=== PATIENT | female | born 1985 | race Caucasian/White ===

== ENCOUNTER 2017-10-14 19:38 | Emergency (ER) | payer MEDICAID ==
[~2017-10-14] VITALS: Ht 170.2 cm; Wt 132.6 kg
[2017-10-14] MEDS ORDERED: LISD30CA5 PO (20:26)
[2017-10-14] MEDS ORDERED: LISI1TAB7 PO (20:27)
[2017-10-14] MEDS ORDERED: ALBU8.5H8 PO (20:27)
[2017-10-14] MEDS ORDERED: DULO30CA2 PO (20:28)
[2017-10-14] MEDS ORDERED: PARO20TA4 PO (20:28)
[2017-10-14] MEDS ORDERED: TRAM100T3 PO (20:29)
[2017-10-14] MEDS ORDERED: KETOROLAC 30 MG/1 ML IM ONE (20:30)
[2017-10-14] MEDS ORDERED: METHOCARBAMOL 750 MG TABLET PO ONE (20:30)
[2017-10-14] MEDS ORDERED: KETOROLAC 30 MG/1 ML ONE (20:45)
[2017-10-14] MEDS ORDERED: METHOCARBAMOL 750 MG TABLET ONE (20:45)
[2017-10-14 20:56] VITALS: BP 137/89
== END 2017-10-14 21:16 | disposition home or self-care (01) ==
LOC: ED 21:11
DX: J20.8 Acute bronchitis due to other specified organisms (principal); B96.89 Other specified bacterial agents as the cause of diseases classified elsewhere; M54.6 Pain in thoracic spine
CPT/HCPCS: 71020; 96372; 99284; J1885

== ENCOUNTER 2017-12-13 08:41 | Emergency (ER) | payer MEDICAID ==
[~2017-12-13] VITALS: Ht 170.2 cm; Wt 133.5 kg
[~2017-12-13 08:41] MED LIST: ALBU8.5H8 PO; DULO30CA2 PO; LISD30CA5 PO; LISI1TAB7 PO; PARO20TA4 PO; TRAM100T3 PO
[2017-12-13 08:45] VITALS: BP 167/99
[2017-12-13] MEDS ORDERED: PROPARACAINE OPHTH 0.5%, 15ML ONE (09:14)
[2017-12-13] MEDS ORDERED: FLUORESCEIN OPHTHALMIC 1 MG STRIP ONE (09:14)
== END 2017-12-13 10:59 | disposition home or self-care (01) ==
LOC: ED 10:20
DX: H10.31 Unspecified acute conjunctivitis, right eye (principal); H66.92 Otitis media, unspecified, left ear; J20.9 Acute bronchitis, unspecified
CPT/HCPCS: 71046; 99284

== ENCOUNTER 2018-01-10 18:39 | Emergency (ER) | payer MEDICAID ==
[~2018-01-10] VITALS: Ht 170.2 cm; Wt 135.3 kg
[2018-01-10 19:23] LABS: BASOPHILS # (AUTO) 0.06 x10^3/uL (0-0.1); BASOPHILS % (AUTO) 1 % (0-1); EOSINOPHILS # (AUTO) 0.28 x10^3/uL (0-0.4); EOSINOPHILS % (AUTO) 3 % (1-7); LYMPHOCYTES # (AUTO) 2.22 x10^3/uL (1-3.4); LYMPHOCYTES % (AUTO) 23 % (22-44); MD NO; MEAN CORPUSCULAR HEMOGLOBIN 27.6 pg (27.0-34.8); MEAN CORPUSCULAR HGB CONC 33.2 g/dL (32.4-35.8); MEAN CORPUSCULAR VOLUME 83.2 fL (80-100); MONOCYTES # (AUTO) 0.45 x10^3/uL (0.2-0.8); MONOCYTES % (AUTO) 5 % (2-9); NEUTROPHILS # (AUTO) 6.88 x10^3/uL (1.8-6.8); NEUTROPHILS % (AUTO) 70 % (42-75); PLATELET COUNT 279 x10^3/uL (130-400); RED CELL DISTRIBUTION WIDTH 14.4 % (9.6-15.2)
[2018-01-10] MEDS ORDERED: SODIUM CHLORIDE FLUSH 10ML SYR IVF ONE (19:30)
[2018-01-10] MEDS ORDERED: ONDANSETRON 2MG/ML, 2ML IVPush ONE (19:30)
[2018-01-10] MEDS ORDERED: FAMOTIDINE 20 MG/2 ML IVP ONE (19:30)
[2018-01-10] MEDS ORDERED: MAALOX/HYOSCYAMINE/LIDOCAINE 45 ML BTL PO ONE (19:30)
[2018-01-10] MEDS ORDERED: SODIUM CHLORIDE 0.9% 1,000ML IVBOLUS ONE (19:30)
[2018-01-10 19:36] LABS: ALANINE AMINOTRANSFERASE 25 U/L (12-78); ALBUMIN 3.7 g/dL (3.4-5.0); ANION GAP 5 mmol/L (5-15); CALCIUM 8.6 mg/dL (8.5-10.1); CHLORIDE 104 mmol/L (98-107); CREATININE 0.77 mg/dL (0.55-1.02)
[2018-01-10 19:39] LABS: ALKALINE PHOSPHATASE 92 U/L (45-117); BILIRUBIN,TOTAL 0.2 mg/dL (0.2-1.0); TOTAL PROTEIN 7.2 g/dL (6.4-8.2)
[2018-01-10 19:49] LABS: CULTURE INDICATED? NO; MICROSCOPIC NOT IND
[2018-01-10] MEDS ORDERED: MAALOX/HYOSCYAMINE/LIDOCAINE 45 ML BTL ONE (19:57)
[2018-01-10] MEDS ORDERED: ONDANSETRON 2MG/ML, 2ML ONE (19:57)
[2018-01-10] MEDS ORDERED: FAMOTIDINE 20 MG/2 ML ONE (19:58)
[2018-01-10 21:30] VITALS: BP 132/79
== END 2018-01-10 21:32 | disposition home or self-care (01) ==
LOC: ED 21:26
DX: K25.3 Acute gastric ulcer without hemorrhage or perforation (principal); F17.200 Nicotine dependence, unspecified, uncomplicated
CPT/HCPCS: 36415; 76700; 80053; 81003; 83690; 85025; 96361; 96374; 96375; 99285; J2405; J7030; S0028

== ENCOUNTER 2018-11-16 22:51 | Emergency (ER) | payer MEDICAID ==
[~2018-11-16] VITALS: Ht 170.2 cm; Wt 142.9 kg
[2018-11-16] MEDS ORDERED: GABA600T2 PO (23:15)
[2018-11-16] MEDS ORDERED: HYDR-3241 PO (23:15)
[2018-11-16] MEDS ORDERED: ALBUTEROL/IPRATROPIUM 2.5MG/0.5MG, 3 ML ONE (23:36)
[2018-11-16] MEDS ORDERED: BENZONATATE 100 MG CAPSULE ONE (23:48)
[2018-11-16 23:52] VITALS: BP 141/77
[2018-11-17] MEDS ORDERED: BENZONATATE 100 MG CAPSULE PO ONE
[2018-11-17] MEDS ORDERED: ALBUTEROL/IPRATROPIUM 2.5MG/0.5MG, 3 ML NPPB ONE
== END 2018-11-17 00:42 | disposition home or self-care (01) ==
LOC: ED 23:02
DX: J45.31 Mild persistent asthma with (acute) exacerbation (principal)
CPT/HCPCS: 71045; 82962; 93005; 94640; 99283; J7512; J7620

== ENCOUNTER 2018-11-24 15:08 | Emergency (ER) | payer MEDICAID ==
[~2018-11-24] VITALS: Ht 170.2 cm; Wt 138.6 kg
[~2018-11-24 15:08] MED LIST changes: +GABA600T2 PO; +HYDR-3241 PO
[2018-11-24 15:32] VITALS: BP 136/74
[2018-11-24] MEDS ORDERED: ALBUTEROL/IPRATROPIUM 2.5MG/0.5MG, 3 ML ONE (15:50)
[2018-11-24] MEDS ORDERED: ALBUTEROL/IPRATROPIUM 2.5MG/0.5MG, 3 ML NPPB ONE (16:00)
== END 2018-11-24 17:19 ==
LOC: ED 16:51
DX: J44.1 Chronic obstructive pulmonary disease with (acute) exacerbation (principal); J06.9 Acute upper respiratory infection, unspecified
CPT/HCPCS: 71046; 94640; 99283; J7512; J7620

== ENCOUNTER 2018-12-02 16:29 | Emergency (ER) | payer MEDICAID ==
[~2018-12-02] VITALS: Ht 170.2 cm; Wt 140.0 kg
[2018-12-02 16:36] VITALS: BP 134/92
== END 2018-12-02 17:31 | disposition home or self-care (01) ==
LOC: ED 17:25
DX: L24.9 Irritant contact dermatitis, unspecified cause (principal); R21 Rash and other nonspecific skin eruption; F17.200 Nicotine dependence, unspecified, uncomplicated; F31.9 Bipolar disorder, unspecified; I10 Essential (primary) hypertension
CPT/HCPCS: 99283

== ENCOUNTER 2019-02-26 19:01 | Emergency (ER) | payer MEDICAID ==
[~2019-02-26] VITALS: Ht 170.2 cm; Wt 130.0 kg
[~2019-02-26 19:01] MED LIST changes: -GABA600T2 PO; +GABA600T7 PO
[2019-02-26 19:12] VITALS: BP 156/95
[2019-02-26] MEDS ORDERED: CYCLOBENZAPRINE 10 MG TABLET ONE (20:27)
[2019-02-26] MEDS ORDERED: HYDROcodone/APAP 5/325 TABLET ONE (20:27)
[2019-02-26] MEDS ORDERED: KETOROLAC 30 MG/1 ML ONE (20:28)
[2019-02-26] MEDS ORDERED: HYDROcodone/APAP 5/325 TABLET PO ONE (20:30)
[2019-02-26] MEDS ORDERED: CYCLOBENZAPRINE 10 MG TABLET PO ONE (20:30)
[2019-02-26] MEDS ORDERED: KETOROLAC 30 MG/1 ML IM ONE (20:30)
== END 2019-02-26 21:01 | disposition home or self-care (01) ==
LOC: ED 20:55
DX: M46.1 Sacroiliitis, not elsewhere classified (principal); I10 Essential (primary) hypertension; J45.909 Unspecified asthma, uncomplicated
CPT/HCPCS: 72110; 96372; 99283; J1885

== ENCOUNTER 2019-04-06 10:31 | Emergency (ER) | payer MEDICAID ==
[~2019-04-06] VITALS: Ht 170.2 cm; Wt 133.6 kg
--- NOTE | 2019-04-06 11:07 | NUR ---
TO ROOM FROM LOBBY
--- NOTE | 2019-04-06 11:43 | NUR ---
LUQ PAIN FOR 2 DAYS, WORSE THIS MORNING. SHARP IN NATURE
[2019-04-06] MEDS ORDERED: ONDANSETRON 2MG/ML, 2ML ONE (11:51)
[2019-04-06] MEDS ORDERED: MORPHINE SULFATE 4 MG/ML, 1ML ONE (11:51)
[2019-04-06] MEDS ORDERED: ONDANSETRON 2MG/ML, 2ML IVPush ONE (12:00)
[2019-04-06] MEDS ORDERED: SODIUM CHLORIDE FLUSH 10ML SYR IVF ONE (12:00)
[2019-04-06] MEDS ORDERED: MORPHINE SULFATE 4 MG/ML, 1ML IVPush PRN (12:00)
[2019-04-06 12:03] LABS: BASOPHILS # (AUTO) 0.02 x10^3/uL (0-0.1); BASOPHILS % (AUTO) 0 % (0-1); EOSINOPHILS # (AUTO) 0.09 x10^3/uL (0-0.4); EOSINOPHILS % (AUTO) 2 % (1-7); LYMPHOCYTES # (AUTO) 1.33 x10^3/uL (1-3.4); LYMPHOCYTES % (AUTO) 24 % (22-44); MD NO; MEAN CORPUSCULAR HEMOGLOBIN 26.6 pg (27.0-34.8); MEAN CORPUSCULAR HGB CONC 32.6 g/dL (32.4-35.8); MEAN CORPUSCULAR VOLUME 81.4 fL (80-100); MEAN PLATELET VOLUME 8.9 fL (7.4-10.4); MONOCYTES % (AUTO) 5 % (2-9); NEUTROPHILS # (AUTO) 3.88 x10^3/uL (1.8-6.8); NEUTROPHILS % (AUTO) 69 % (42-75); PLATELET COUNT 228 x10^3/uL (130-400); RED BLOOD COUNT 4.84 x10^6/uL (3.82-5.3); RED CELL DISTRIBUTION WIDTH 14.8 % (9.6-15.2)
--- NOTE | 2019-04-06 12:10 | NUR ---
MEDICATED FOR ABDOMIAL PAIN
[2019-04-06 12:12] LABS: INTERNATIONAL NORMALIZED RATIO 0.95 (0.93-1.1)
[2019-04-06 12:14] LABS: ALANINE AMINOTRANSFERASE 21 U/L (12-78); ALBUMIN 3.3 g/dL (3.4-5.0); ANION GAP 3 mmol/L (5-15); CALCIUM 8.6 mg/dL (8.5-10.1); CHLORIDE 111 mmol/L (98-107)
[2019-04-06 12:20] LABS: ALKALINE PHOSPHATASE 77 U/L (45-117); BILIRUBIN,TOTAL 0.3 mg/dL (0.2-1.0); CREATININE 0.74 mg/dL (0.55-1.02); TOTAL PROTEIN 5.9 g/dL (6.4-8.2)
[2019-04-06 13:23] VITALS: BP 127/58
--- NOTE | 2019-04-06 13:23 | NUR ---
PAIN 12/11 SINCE MEDICATED. UOB TO BATHROOM TO PROVIDE SAMPLE
[2019-04-06 14:07] LABS: MICROSCOPIC AUTO
[2019-04-06 14:24] LABS: CULTURE INDICATED? YES
--- NOTE | 2019-04-06 14:48 | NUR ---
TASK RN: PT RESTING COMFORTABLY IN GURNEY W/ EYES CLOSED. PT EASILY ARROUSABLE TO VOICE. DENIES NEED FOR PAIN MEDICATIONS. DC EDUCAITON PROVIDED, PT DEMONSTRATES UNDESTANDING. PT AMBULATED STEADILY TO DC WITH RN AND SO. PT REPORTS THAT SHE WILL BE WALKING HOME W/ SO. PT DRESSED APPROPRIATELY
[2019-04-06] MEDS ORDERED: KETOROLAC 30 MG/1 ML IVPush ONE (15:00)
== END 2019-04-06 14:51 | disposition home or self-care (01) ==
LOC: ED 14:13
DX: R10.12 Left upper quadrant pain (principal); R10.32 Left lower quadrant pain; R11.0 Nausea; J45.909 Unspecified asthma, uncomplicated; F31.9 Bipolar disorder, unspecified; M79.7 Fibromyalgia; F17.200 Nicotine dependence, unspecified, uncomplicated; Z88.0 Allergy status to penicillin
CPT/HCPCS: 36415; 74176; 80053; 81001; 83690; 84703; 85025; 85610; 85730; 87086; 96374; 96375; 99284; J2405

== ENCOUNTER 2019-04-16 18:49 | Emergency (ER) | payer MEDICAID ==
[2019-04-16 19:21] LABS: BASOPHILS # (AUTO) 0.04 x10^3/uL (0-0.1); BASOPHILS % (AUTO) 1 % (0-1); EOSINOPHILS # (AUTO) 0.17 x10^3/uL (0-0.4); EOSINOPHILS % (AUTO) 2 % (1-7); LYMPHOCYTES # (AUTO) 1.83 x10^3/uL (1-3.4); LYMPHOCYTES % (AUTO) 26 % (22-44); MD NO; MEAN CORPUSCULAR HEMOGLOBIN 26.7 pg (27.0-34.8); MEAN CORPUSCULAR VOLUME 81.1 fL (80-100); MEAN PLATELET VOLUME 8.9 fL (7.4-10.4); MONOCYTES # (AUTO) 0.35 x10^3/uL (0.2-0.8); MONOCYTES % (AUTO) 5 % (2-9); NEUTROPHILS # (AUTO) 4.77 x10^3/uL (1.8-6.8); NEUTROPHILS % (AUTO) 67 % (42-75); PLATELET COUNT 291 x10^3/uL (130-400); RED BLOOD COUNT 5.35 x10^6/uL (3.82-5.3); RED CELL DISTRIBUTION WIDTH 14.8 % (9.6-15.2)
[2019-04-16 19:33] LABS: ALBUMIN 3.7 g/dL (3.4-5.0); ANION GAP 4 mmol/L (5-15); CALCIUM 8.8 mg/dL (8.5-10.1); CHLORIDE 110 mmol/L (98-107)
[2019-04-16 19:41] LABS: ALANINE AMINOTRANSFERASE 26 U/L (12-78); ALKALINE PHOSPHATASE 102 U/L (45-117); BILIRUBIN,TOTAL 0.4 mg/dL (0.2-1.0); CREATININE 1.18 mg/dL (0.55-1.02); TOTAL PROTEIN 6.7 g/dL (6.4-8.2)
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
[2019-04-16 20:05] LABS: MICROSCOPIC AUTO
[2019-04-16 20:51] LABS: CULTURE INDICATED? YES
--- NOTE | 2019-04-16 20:53 | NUR ---
RESULTS BACK, CHART UP FOR RECHECK. REPORT TO CHLOE SUTTON.
--- NOTE | 2019-04-16 21:02 | NUR ---
REPORT RECEIVED FROM CHLOE BOYCE. ASSUMED CARE OF PT.
[2019-04-16 21:06] VITALS: BP 142/86
--- NOTE | 2019-04-16 21:50 | NUR ---
Patient/Caregiver given discharge instructions and they have confirmed that they understand the instructions. Patient ambulatory with steady gait.
== END 2019-04-16 21:52 | disposition home or self-care (01) ==
LOC: ED 21:42
DX: N30.01 Acute cystitis with hematuria (principal); I10 Essential (primary) hypertension; F31.9 Bipolar disorder, unspecified; F17.210 Nicotine dependence, cigarettes, uncomplicated
CPT/HCPCS: 36415; 80053; 81001; 84703; 85025; 87086; 99283

== ENCOUNTER 2019-06-15 12:42 | Emergency (ER) | payer MEDICAID ==
[~2019-06-15] VITALS: Ht 170.2 cm; Wt 126.1 kg
[2019-06-15 12:49] VITALS: BP 129/66
--- NOTE | 2019-06-15 13:58 | NUR ---
PT WITH WOUNDS BETWEEN TOES ON R FOOT. SHE STATES THIS BEGAN A MONTH AGO BUT HAS PROGRESSIVELY GOT WORSE AND IT HURTS HER TO WALK NOW. PT DENIES DM HX.
[2019-06-15] MEDS ORDERED: NEOSPORIN OINT. PKT 1 PACKET ONE (14:01)
--- NOTE | 2019-06-15 14:10 | NUR ---
Patient/Caregiver given discharge instructions and they have confirmed that they understand the instructions. Patient ambulatory with steady gait.
== END 2019-06-15 14:13 | disposition home or self-care (01) ==
LOC: ED 14:05
DX: L03.115 Cellulitis of right lower limb (principal); B35.3 Tinea pedis; I10 Essential (primary) hypertension; J45.909 Unspecified asthma, uncomplicated
CPT/HCPCS: 82962; 99283

== ENCOUNTER 2019-07-10 03:53 | Emergency (ER) | payer MEDICAID ==
[~2019-07-10] VITALS: Ht 170.2 cm; Wt 124.9 kg
[2019-07-10 05:38] VITALS: BP 117/60
== END 2019-07-10 06:14 | disposition home or self-care (01) ==
LOC: ED 05:16
DX: G89.11 Acute pain due to trauma (principal); M54.5 Low back pain; F17.200 Nicotine dependence, unspecified, uncomplicated; I10 Essential (primary) hypertension; W19.XXXA Unspecified fall, initial encounter; Y93.89 Activity, other specified; Y92.89 Other specified places as the place of occurrence of the external cause; Y99.8 Other external cause status
CPT/HCPCS: 72072; 72110; 96372; 99284; J1885

== ENCOUNTER 2019-07-13 13:25 | Emergency (ER) | payer MEDICAID ==
[~2019-07-13] VITALS: Ht 170.2 cm; Wt 124.0 kg
[2019-07-13 15:24] VITALS: BP 121/66
== END 2019-07-13 15:26 | disposition home or self-care (01) ==
LOC: ED 15:24
DX: S39.012A Strain of muscle, fascia and tendon of lower back, initial encounter (principal); S29.012A Strain of muscle and tendon of back wall of thorax, initial encounter; S09.90XA Unspecified injury of head, initial encounter; I10 Essential (primary) hypertension; E66.9 Obesity, unspecified; W18.30XA Fall on same level, unspecified, initial encounter; Y93.89 Activity, other specified; Y92.512 Supermarket, store or market as the place of occurrence of the external cause; Y99.8 Other external cause status
CPT/HCPCS: 70450; 93005; 99284

== ENCOUNTER 2020-12-17 19:51 | Emergency (ER) | payer MEDICAID ==
[~2020-12-17] VITALS: Ht 170.2 cm; Wt 107.2 kg
[~2020-12-17 19:51] MED LIST changes: +ALBU18HF INH; +ARIP15TA3 PO; +LAMO100T63 PO; +LISI1TAB20 PO; -LISI1TAB7 PO; +LORA-59 PO; +MELO7.5T31 PO; +PANT40TA6 PO; +TOPI100T8 PO
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
[2020-12-17 21:50] VITALS: BP 125/79
== END 2020-12-17 21:52 | disposition home or self-care (01) ==
LOC: ED 21:39
DX: J45.909 Unspecified asthma, uncomplicated (principal); R51.9 Headache, unspecified; Z86.73 Personal history of transient ischemic attack (TIA), and cerebral infarction without residual deficits
CPT/HCPCS: 36415; 84703; 99283

== ENCOUNTER 2021-05-26 17:40 | Emergency (ER) | payer MEDICAID ==
[~2021-05-26] VITALS: Ht 170.2 cm; Wt 115.0 kg
--- NOTE | 2021-05-26 17:46 | NUR ---
BIB [facility] FROM [facility]. PT C/O RIGHT MIDDLE TOE PAIN/SWELLING AFTER BUG BITE. PT AMBULATED FROM [facility] TO AMBULANCE. [employer] [facility]: [id number]
[2021-05-26 18:33] VITALS: BP 146/92
--- NOTE | 2021-05-26 18:41 | NUR ---
Patient given discharge instructions and they have confirmed that they understand the instructions. Patient ambulatory with steady gait.
== END 2021-05-26 18:43 | disposition home or self-care (01) ==
LOC: ED 18:00
DX: S90.512A Abrasion, left ankle, initial encounter (principal); S90.415A Abrasion, left lesser toe(s), initial encounter; L03.032 Cellulitis of left toe; F17.210 Nicotine dependence, cigarettes, uncomplicated; W18.30XA Fall on same level, unspecified, initial encounter; Y93.89 Activity, other specified; Y92.009 Unspecified place in unspecified non-institutional (private) residence as the place of occurrence of the external cause; Y99.8 Other external cause status
CPT/HCPCS: 99283